=== PATIENT | male | born 1955 | race Caucasian/White ===

== ENCOUNTER 2025-07-12 09:08 | Outpatient (CLI) | payer OTHER, SELFPAY | END 2025-07-12 09:09 | disposition home or self-care (01) | LOC: NFLDREF 07-17 15:10 | PROVIDERS: PCP Family Medicine; Visit Provider Family Medicine | DX: Z00.00 Encounter for general adult medical examination without abnormal findings (principal); E78.2 Mixed hyperlipidemia; Z86.39 Personal history of other endocrine, nutritional and metabolic disease | CPT/HCPCS: 80053; 80061; 82306; G0103 ==